=== PATIENT | female | born 1985 | race African-American/Black ===

== ENCOUNTER 2020-11-16 16:22 | Emergency (ER) | payer MEDICAID, MEDICARE, OTHER ==
[~2020-11-16] VITALS: Ht 175.3 cm; Wt 77.0 kg
[2020-11-16 16:24] VITALS: BP 112/62
== END 2020-11-16 17:47 | disposition left against medical advice (07) ==
LOC: ER 16:22
DX: M79.669 Pain in unspecified lower leg (principal); Z53.21 Procedure and treatment not carried out due to patient leaving prior to being seen by health care provider

== ENCOUNTER 2023-06-03 10:58 | Emergency (ER) | payer MEDICARE, MEDICAID ==
[~2023-06-03] VITALS: Ht 165.1 cm; Wt 60.0 kg
[2023-06-03] MEDS ORDERED: LORAZEPAM 1MG TABLET PO ONE (11:15)
[2023-06-03 11:17] VITALS: BP 141/85; PULSE 78; RESP 16; TEMP 98.3; O2SAT 100
== END 2023-06-03 12:10 | disposition home or self-care (01) ==
LOC: ER 10:58
DX: F41.9 Anxiety disorder, unspecified (principal); F12.10 Cannabis abuse, uncomplicated; Z91.148 Patient's other noncompliance with medication regimen for other reason; Z86.59 Personal history of other mental and behavioral disorders
CPT/HCPCS: 99283